=== PATIENT | female | born 1995 | race African-American/Black ===

== ENCOUNTER 2019-04-29 16:32 | Emergency (ER) | payer OTHER, SELFPAY ==
[2019-04-29] MEDS ORDERED: NA CHLORIDE 0.9% 1,000 ML ONE (16:36)
[2019-04-29] MEDS ORDERED: ONDANSETRON 4 MG/2 ML VIAL ONE (16:36)
--- OUTSIDE RECORDS SUMMARY | 2019-04-29 16:37 | XMS REPORT ---
:1995 [facility] Address [address] [place] [address] Dr. Leyva [address] [place] [id number] Care Team Providers Name Role Phone Unavailable Unavailable Unavailable Problems This patient has no known problems. Allergies, Adverse Reactions, Alerts This patient has no known allergies or adverse reactions. Medications This patient has no known medications.
[2019-04-29 17:06] LABS: Absolute Lymphocytes (CBC) 1.6 K/uL (0.7-4.9); Basophils % 1.1 % (0-1.3); Hematocrit 40.7 % (36.0-45.0); Lymphocytes % 42.7 % (15.3-44.8); MPV 8.2 fL (7.6-11.3); RBC Red Blood Cell Count 5.39 M/uL (3.86-4.86)
[2019-04-29] MEDS ORDERED: DIPHENHYDRAMINE 50 MG/ML VIAL ONE (17:08)
[2019-04-29 17:39] LABS: Blood Morphology Comment NOT SEEN (NOT SEEN); Platelet Estimate ADEQ; Target Cells FEW
[2019-04-29 17:50] LABS: BUN Blood Urea Nitrogen 11 mg/dL (7-18); Bicarbonate 22 mmol/L (21-32); CKMB Creatine Kinase MB < 1.0 ng/mL (0.3-3.6); Creatine Phosphokinase 70 U/L (26-192); Glucose Level 56 mg/dL (74-106); Magnesium 2.3 mg/dL (1.8-2.4); Potassium 3.5 mmol/L (3.5-5.1); Sodium Level 143 mmol/L (136-145); Troponin (Emerg Dept Use Only) < 0.02 ng/mL (0.0-0.045)
[2019-04-29 18:00] LABS: Urine Blood NEGATIVE (NEG); Urine Glucose NEGATIVE (NEG); Urine Protein NEGATIVE (NEG)
[2019-04-29 18:13] LABS: Urine Culture Reflex Order REFLEXED
[2019-04-29 18:14] LABS: Urine Bacteria 20-50 /HPF (<20); Urine Mucus SLIGHT /HPF (NONE SEEN); Urine RBC <5 /HPF (NONE SEEN)
--- NOTE | 2019-04-29 18:23 | ER ---
Nurse's Notes [facility] Name: Halle Zamudio Age: 23 yrs Sex: Female : 1995 Arrival Date: 04/29/2019 Time: 16:33 Bed 19 Private MD: Diagnosis: Dehydration;Hypoglycemia, unspecified Presentation: 04/29 16:33 Presenting complaint: EMS states: near syncopal episode while standing at work. Reports hb dizziness and nausea. Transition of care: patient was not received from another setting of care. Onset of symptoms was April 29, 2019. Risk Assessment: Do you want to hurt yourself or someone else? Patient reports no desire to harm self or others. Initial Sepsis Screen: Does the patient meet any 2 criteria? No. Patient's initial sepsis screen is negative. Does the patient have a suspected source of infection? No. Patient's initial sepsis screen is negative. Care prior to arrival: None. 16:33 Method Of Arrival: Ambulatory hb 16:33 Acuity: ROSEMARIE 3 hb Triage Assessment: 16:35 General: Appears in no apparent distress. Behavior is calm, cooperative. Pain: Denies hb pain. EENT: No signs and/or symptoms were reported regarding the EENT system. Neuro: Level of Consciousness is awake, alert, obeys commands, Oriented to person, place, time, situation. Cardiovascular: Capillary refill < 3 seconds Patient's skin is warm and dry. Cardiovascular: Heart tones S1 S2 present. Respiratory: Airway is patent Respiratory effort is even, unlabored, Respiratory pattern is regular, symmetrical, Breath sounds are clear bilaterally. GI: Reports nausea. : No signs and/or symptoms were reported regarding the genitourinary system. Derm: Skin is intact, is healthy with good turgor, Skin is clammy. Musculoskeletal: No signs and/or symptoms reported regarding the musculoskeletal system. Historical: - Allergies: 16:34 No Known Allergies; hb - Home Meds: 16:35 None [Active]; hb - PMHx: 16:35 None; hb - PSHx: 16:35 None; hb - Immunization history:: Adult Immunizations up to date. - Social history:: Smoking status: Patient/guardian denies using tobacco. - Ebola Screening: : No symptoms or risks identified at this time. Screenin:00 Abuse screen: Denies threats or abuse. Denies injuries from another. Nutritional hb screening: No deficits noted. Tuberculosis screening: No symptoms or risk factors identified. Fall Risk Total Claudio Fall Scale indicates Low Risk Score (25-44 pts). Fall prevention measures have been instituted. Side Rails Up X 2 Frequent Obs/Assesments occuring Family Present and informed to notify staff if they need to leave bedside As available Patient and Family Educated on Fall Prevention Program and strategies. Assessment: 16:44 General: see triage assessment. hb 17:30 Reassessment: Patient appears in no apparent distress at this time. Patient and/or hb family updated on plan of care and expected duration. Pain level reassessed. Patient is alert, oriented x 3, equal unlabored respirations, skin warm/dry/pink. 18:30 Reassessment: Discharge ordered, BGL 50s, pt provided sandwich, juice, and fruit cup. hb Discharge pending blood sugar recheck. 19:20 Reassessment: Patient appears in no apparent distress at this time. Patient and/or cc3 family updated on plan of care and expected duration. Pain level reassessed. Patient is alert, oriented x 3, equal unlabored respirations, skin warm/dry/pink. Received this female patient from morning shift [employer] as a case of near syncopal attack with IV cannula gauge 24 at the right hand with ongoing IVF of NS 1L bolus infusing well. Ordered for discharge home but to finish the remaining almost 400 mL of NS fluid bolus as endorsed for previous low blood pressure readings. Patient denies pain at this time. Patient states feeling better. General: Appears in no apparent distress. comfortable, Behavior is calm, cooperative, appropriate for age. Pain: Denies pain. Neuro: Level of Consciousness is awake, alert, obeys commands, Oriented to person, place, time, situation, Appropriate for age. Cardiovascular: Denies chest pain, Capillary refill < 3 seconds Patient's skin is warm and dry. Respiratory: Airway is patent Respiratory effort is even, unlabored, Respiratory pattern is regular, symmetrical. GI: Abdomen is flat. : No signs and/or symptoms were reported regarding the genitourinary system. EENT: No signs and/or symptoms were reported regarding the EENT system. Derm: Skin is intact, is healthy with good turgor, Skin is pink, warm \T\ dry. normal. Musculoskeletal: Circulation, motion, and sensation intact. Range of motion: intact in all extremities. 20:10 Reassessment: Patient appears in no apparent distress at this time. Patient and/or cc3 family updated on plan of care and expected duration. Pain level reassessed. Patient is alert, oriented x 3, equal unlabored respirations, skin warm/dry/pink. IV fluid bolus completed, blood pressure reading of 101/67 mmHg, informed [employer] DEVELOPER Jm and she said patient can be discharged home. IV cannula removed and patient left ER vitally stable and ambulatory with her relative. No valuables left in the patient's room. Patient denies pain at this time. Patient states feeling better. Patient states symptoms have improved. Vital Signs: 16:34 BP 110 / 63 Supine; Pulse 87; Resp 16; Temp 98; Pulse Ox 100% on R/A; Weight 56.7 kg; hb Height 5 ft. 4 in. (162.56 cm); Pain 0/10; 16:50 BP 96 / 53 Sitting; Pulse 60; hb 17:00 BP 90 / 61 Standing; Pulse 84; hb 17:57 BP 106 / 77; Pulse 67; Resp 15; Pulse Ox 99% on R/A; hb 18:50 BP 104 / 73; Pulse 66; Resp 14; Pulse Ox 99% on R/A; hb 19:30 BP 101 / 64; Pulse 73; Resp 16 S; Temp 98.1(O); Pulse Ox 100% on R/A; cc3 20:10 BP 101 / 67; Pulse 64; Resp 17 S; Pulse Ox 100% on R/A; cc3 16:34 Body Mass Index 21.46 (56.70 kg, 162.56 cm) hb ED Course: 16:33 Patient arrived in ED. hb 16:34 Triage completed. hb 16:34 Angela Oneal FNP-C is [facility]. kb 16:34 Arm band placed on. hb 16:35 Eulogio Mora MD is Attending Physician. kb 16:45 Missed attempt(s): 22 gauge in left antecubital area. Bleeding controlled, band aid dh3 applied, catheter tip intact. 16:50 Initial lab(s) drawn, by me, sent to lab. Missed attempt(s): 22 gauge in left hand. dh3 Bleeding controlled, band aid applied, catheter tip intact. 17:00 Siena Zuluaga, RN is Primary Nurse. hb 17:02 Missed attempt(s): 22 gauge in right antecubital area. Bleeding controlled, band aid hb applied, catheter tip intact. 17:05 Missed attempt(s): 22 gauge in right forearm. Bleeding controlled, band aid applied, hb catheter tip intact. 17:08 EKG done, by technology auditor. reviewed by Angela CELAYA. 3 17:12 Inserted saline lock: 24 gauge in right hand, using aseptic technique. Blood collected. hb 17:42 Urine collected: clean catch specimen, cloudy, nohelia colored. 3 17:57 Patient has correct armband on for positive identification. Bed in low position. Call hb light in reach. Side rails up X 1. 20:20 No provider procedures requiring assistance completed. IV discontinued, intact, cc3 bleeding controlled, No redness/swelling at site. Pressure dressing applied. Administered Medications: 17:00 Drug: Zofran 4 mg Route: IVP; Site: right antecubital; hb 17:35 Follow up: Response: No adverse reaction hb 17:01 Drug: NS 0.9% 1000 ml Route: IV; Rate: 1000 ml; Site: right hand; hb 18:00 Follow up: Response: No adverse reaction; IV Status: Completed infusion; IV Intake: hb 1000ml Intake: 18:00 IV: 1000ml; Total: 1000ml. hb Outcome: 18:22 Discharge ordered by . kb 20:20 Discharged to home ambulatory, with family. cc3 20:20 Condition: stable 20:20 Discharge instructions given to patient, family, Instructed on discharge instructions, follow up and referral plans. Demonstrated understanding of instructions, follow-up care. 20:29 Patient left the ED. cc3 Signatures: Angela Oneal FNP-C FNP-Ckb Baxter, Heather RN RN Savannah Mcmullen 3 Mariama Christie 3 Karely Burgos cc3 Corrections: (The following items were deleted from the chart) 16:35 16:34 BP 110 / 63; Pulse 87bpm; Resp 16bpm; Pulse Ox 100% RA; Temp 98F; 56.7 kg; Height hb 5 ft. 4 in.; BMI: 21.4; Pain 0/10; hb 17:57 16:44 BP 106 / 77; Pulse 67bpm; Resp 15bpm; Pulse Ox 99% RA; hb hb 20:47 20:20 Reassessment: Patient appears in no apparent distress at this time. Patient cc3 and/or family updated on plan of care and expected duration. Pain level reassessed. Patient is alert, oriented x 3, equal unlabored respirations, skin warm/dry/pink. cc3
--- NOTE | 2019-04-29 18:23 | EDPHYS ---
Physician Documentation [facility] Name: Halle Zamudio Age: 23 yrs Sex: Female : 1995 Arrival Date: 04/29/2019 Time: 16:33 Bed 19 Private MD: ED Physician Eulogio Mora HPI: 04/29 18:25 This 23 yrs old Black Female presents to ER via Ambulatory with complaints of Near kb Syncope. 18:25 The patient has experienced near-syncope, felt dizzy, felt faint. Onset: The kb symptoms/episode began/occurred just prior to arrival. Duration: This was a single episode. Context: occurred at work, occurred while the patient was standing, Just prior to the episode the patient experienced no apparent symptoms. Associated injury: The patient did not suffer any apparent associated injury. Associated signs and symptoms: Pertinent positives: dizziness. Current symptoms: Currently, the patient is not experiencing any symptoms, the patient feels back to baseline, no decreased level of consciousness, no confusion, no dysphasia, no headache, no paralysis, no visual changes. The patient has not experienced similar symptoms in the past. The patient has not recently seen a physician. 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 Reports she was outside a lot before work, went into work at 3 and has been inside since then. . Historical: - Allergies: 16:34 No Known Allergies; hb - Home Meds: 16:35 None [Active]; hb - PMHx: 16:35 None; hb - PSHx: 16:35 None; hb - Immunization history:: Adult Immunizations up to date. - Social history:: Smoking status: Patient/guardian denies using tobacco. - Ebola Screening: : No symptoms or risks identified at this time. ROS: 18:25 Constitutional: Negative for fever, chills, and weight loss, ENT: Negative for injury, kb pain, and discharge, Neck: Negative for injury, pain, and swelling, Cardiovascular: Negative for chest pain, palpitations, and edema, Respiratory: Negative for shortness of breath, cough, wheezing, and pleuritic chest pain, Abdomen/GI: Negative for abdominal pain, nausea, vomiting, diarrhea, and constipation, Back: Negative for injury and pain, : Negative for injury, bleeding, discharge, and swelling, MS/Extremity: Negative for injury and deformity, Skin: Negative for injury, rash, and discoloration. 18:25 Neuro: Positive for dizziness, near syncope. Exam: 18:25 Constitutional: This is a well developed, well nourished patient who is awake, alert, kb and in no acute distress. Head/Face: Normocephalic, atraumatic. ENT: Nares patent. No nasal discharge, no septal abnormalities noted. Tympanic membranes are normal and external auditory canals are clear. Oropharynx with no redness, swelling, or masses, exudates, or evidence of obstruction, uvula midline. Mucous membranes moist. Neck: Trachea midline, no thyromegaly or masses palpated, and no cervical lymphadenopathy. Supple, full range of motion without nuchal rigidity, or vertebral point tenderness. No Meningismus. Chest/axilla: Normal chest wall appearance and motion. Nontender with no deformity. No lesions are appreciated. Cardiovascular: Regular rate and rhythm with a normal S1 and S2. No gallops, murmurs, or rubs. Normal PMI, no JVD. No pulse deficits. Respiratory: Lungs have equal breath sounds bilaterally, clear to auscultation and percussion. No rales, rhonchi or wheezes noted. No increased work of breathing, no retractions or nasal flaring. Abdomen/GI: Soft, non-tender, with normal bowel sounds. No distension or tympany. No guarding or rebound. No evidence of tenderness throughout. Skin: Warm, dry with normal turgor. Normal color with no rashes, no lesions, and no evidence of cellulitis. MS/ Extremity: Pulses equal, no cyanosis. Neurovascular intact. Full, normal range of motion. Neuro: Awake and alert, GCS 15, oriented to person, place, time, and situation. Cranial nerves II-XII grossly intact. Motor strength 5/5 in all extremities. Sensory grossly intact. Cerebellar exam normal. Normal gait. Vital Signs: 16:34 BP 110 / 63 Supine; Pulse 87; Resp 16; Temp 98; Pulse Ox 100% on R/A; Weight 56.7 kg; hb Height 5 ft. 4 in. (162.56 cm); Pain 0/10; 16:50 BP 96 / 53 Sitting; Pulse 60; hb 17:00 BP 90 / 61 Standing; Pulse 84; hb 17:57 BP 106 / 77; Pulse 67; Resp 15; Pulse Ox 99% on R/A; hb 18:50 BP 104 / 73; Pulse 66; Resp 14; Pulse Ox 99% on R/A; hb 19:30 BP 101 / 64; Pulse 73; Resp 16 S; Temp 98.1(O); Pulse Ox 100% on R/A; cc3 20:10 BP 101 / 67; Pulse 64; Resp 17 S; Pulse Ox 100% on R/A; cc3 16:34 Body Mass Index 21.46 (56.70 kg, 162.56 cm) hb MDM: 16:35 Patient medically screened. ivan 18:20 Data reviewed: vital signs, nurses notes. Data interpreted: Pulse oximetry: on room air kb is 99 %. Interpretation: normal. Counseling: I had a detailed discussion with the patient and/or guardian regarding: the historical points, exam findings, and any diagnostic results supporting the discharge/admit diagnosis, lab results, the need for outpatient follow up, a family practitioner, to return to the emergency department if symptoms worsen or persist or if there are any questions or concerns that arise at home. 04/29 16:36 Order name: Troponin (emerg Dept Use Only) kb 04/29 16:36 Order name: Basic Metabolic Panel kb 04/29 16:36 Order name: CBC with Diff; Complete Time: 17:43 kb 04/29 16:36 Order name: Ckmb; Complete Time: 17:51 kb 04/29 16:36 Order name: CPK; Complete Time: 17:51 kb 04/29 16:36 Order name: Magnesium; Complete Time: 17:51 kb 04/29 16:36 Order name: Troponin (Emerg Dept Use Only); Complete Time: 17:51 EDMS 04/29 16:36 Order name: Basic Metabolic Panel; Complete Time: 17:51 EDMS 04/29 17:14 Order name: Manual Differential; Complete Time: 17:43 EDMS 04/29 17:41 Order name: Urine Microscopic Only; Complete Time: 18:14 dh3 04/29 17:41 Order name: Urine Dipstick--Ancillary (enter results); Complete Time: 18:02 bd 04/29 17:41 Order name: Urine --Ancillary (enter results); Complete Time: 18:02 bd 04/29 18:14 Order name: Urine Culture EDMS 04/29 19:16 Order name: Glucose, Ancillary Testing; Complete Time: 19:17 EDMS 04/29 16:36 Order name: EKG; Complete Time: 16:37 kb 04/29 16:36 Order name: EKG - Nurse/Tech; Complete Time: 16:58 kb 04/29 16:36 Order name: IV Saline Lock; Complete Time: 16:58 kb 04/29 16:36 Order name: Urine Dipstick-Ancillary (obtain specimen); Complete Time: 17:42 kb 04/29 16:36 Order name: Orthostatics; Complete Time: 17:01 kb 04/29 17:10 Order name: Labs - recollect needed; Complete Time: 17:42 ss Administered Medications: 17:00 Drug: Zofran 4 mg Route: IVP; Site: right antecubital; hb 17:35 Follow up: Response: No adverse reaction hb 17:01 Drug: NS 0.9% 1000 ml Route: IV; Rate: 1000 ml; Site: right hand; hb 18:00 Follow up: Response: No adverse reaction; IV Status: Completed infusion; IV Intake: hb 1000ml Disposition: 04/30 09:10 Co-signature as Attending Physician, Eulogio Mora MD I agree with the assessment and ivan plan of care. Disposition: 04/29/19 18:22 Discharged to Home. Impression: Dehydration, Hypoglycemia, unspecified. - Condition is Stable. - Discharge Instructions: Dehydration, Adult, Hypoglycemia, [id number]. - Medication Reconciliation Form, Thank You Letter, Antibiotic Education, Prescription Opioid Use, Work release form form. - Follow up: Emergency Department; When: As needed; Reason: Worsening of condition. Follow up: Private Physician; When: 2 - 3 days; Reason: Recheck today's complaints, Continuance of care, Re-evaluation by your physician. Signatures: Dispatcher [employer] EDAngela Ring, YOMI DURAN-Eulogio Ngo MD MD cha Smirch, Shelby, RN RN ss Baxter, Heather, RN RN Karely Soares cc3 Corrections: (The following items were deleted from the chart) 04/29 20:29 18:22 04/29/2019 18:22 Discharged to Home. Impression: Dehydration; Hypoglycemia, cc3 unspecified. Condition is Stable. Forms are Medication Reconciliation Form, Thank You Letter, Antibiotic Education, Prescription Opioid Use. Follow up: Emergency Department; When: As needed; Reason: Worsening of condition. Follow up: Private Physician; When: 2 - 3 days; Reason: Recheck today's complaints, Continuance of care, Re-evaluation by your physician. kb
--- NOTE | 2019-04-30 05:30 | EKG ---
Test Date: 2019-04-29 Test Time: 17:04:02 Road Oiler: DALLIN MEASUREMENT RESULTS: Intervals: Rate: 59 NH: 128 QRSD: 88 QT: 382 QTc: 378 [place]: P: 53 NH: 128 QRS: 76 T: 57 INTERPRETIVE STATEMENTS: Sinus bradycardia Otherwise normal ECG Compared to ECG 05/11/2014 11:00:43 No significant changes Electronically Signed On 04-30-19 05:29:53 CDT by Duong Moreno
== END 2019-04-29 20:29 | disposition home or self-care (01) ==
LOC: ER 16:32
DX: E86.0 Dehydration (principal); E16.2 Hypoglycemia, unspecified
CPT/HCPCS: 36415; 80048; 81003; 81015; 81025; 82550; 82553; 82962; 83735; 84484; 85025; 87086; 87088; 93005; 96361; 96374; 99284; J2405; J7030

== ENCOUNTER 2022-01-15 07:49 | Emergency (ER) | payer BC, SELFPAY ==
--- OUTSIDE RECORDS SUMMARY | 2022-01-15 07:53 | XMS REPORT | Continuity of Care Document ---
:1995 Author Organization [facility] t Address [address] [place] [address] Care Team Providers Name Role Phone JAMES MURPHY Attending Clinician Unavailable JAMES MURPHY Attending Clinician Unavailable Samson Attending Clinician Unavailable Samson Admitting Clinician Unavailable Payers Payer Name Policy Type Policy Number Effective Date Expiration Date Fran MCCAIN [id number] 2021 ADVANTAGE HMO 00:00:00 Problems This patient has no known problems. Allergies, Adverse Reactions, Alerts Allergy Allergy Status Severity Reaction(s) Onset Inactive Treating Comm ents Source Name Type Date Date Clinician NO KNOWN Drug Active [facility]ERGIE Class [facility] Social History Smoking Status Start Date Stop Date Source Never Smoker [facility] Medications Ordered Filled Start Stop Current Ordering Indication Dosage Frequency Signature Comments Components Source Medication Medication Date Date Medication? Clinician (SIG) Name Name ibuprofen ibuprofen No 1 Q8H ibuprofen [facility] 800 mg 800 mg 800 mg da tablet Take tablet Take tablet Medical 1 tablet 1 tablet Take 1 Group every 8 every 8 tablet hours by hours by every 8 oral route oral route hours by for 10 for 10 oral route days. days. for 10 days. Vital Signs Vital Name Observation Time Observation Value Comments Source BP Diastolic 2020-05-17 00:00:00 72 mm[Hg] [facility] Height 2020-05-17 00:00:00 63.25 [in_i] [facility] BMI (Body Mass 2020-05-17 00:00:00 24.4 kg/m2 [facility]) Group BP Systolic 2020-05-17 00:00:00 111 mm[Hg] [facility] Body Weight 2020-05-17 00:00:00 2220.8 [oz_av] [facility] Procedures Procedure Date / Time Performed Performing Clinician Sour e XR, finger(s), 2 or 2020-05-17 00:00:00 Marisa tarango [facility] more view Group Plan of Care Planned Activity Planned Date Details Comments Source Instructions [facility]rem[facility] Encounters Start End Encounter Admission Attending Care Care Encounter Source Date/Time Date/Time Type Type Clinicians Facility Department ID 2021-03-14 2021-03-14 Outpatient R NILDA MURPHY [facility] [id number] [facility] 13:40:00 13:40:00 NILDA MURPHY [id number] [facility] 2021-03-14 2021-03-14 Outpatient R NILDA MURPHY [facility] [id number] [facility] 13:40:00 13:40:00 NILDA MURPHY [facility] 2021-02-28 2021-02-28 Outpatient R [facility] [id number] [facility] 10:00:00 10:00:00 [facility] 2020-05-20 2020-05-20 [place] [id number] [facility] 09:14:00 09:14:00 [id number] 2020-05-19 2020-05-19 [place] [id number] [facility] 06:29:00 06:29:00 [facility] 2020-05-17 2020-05-17 [place] [id number] [facility] 01:58:00 01:58:00 [facility] 2020-05-17 2020-05-17 [facility] [place] - [id number] [facility] 00:00:00 00:00:00 Ezequiel [facility] RESIDENTIAL SALES CONSULTANT: [address], [place] [address] , Ph. Results This patient has no known results.
[2022-01-15] MEDS ORDERED: ONDANSETRON 4 MG/2 ML VIAL ONE (08:12)
[2022-01-15] MEDS ORDERED: MORPHINE 4 MG/ML SYR ONE (08:12)
[2022-01-15] MEDS ORDERED: NA CHLORIDE 0.9% 1,000 ML ONE (08:12)
[2022-01-15 08:16] LABS: Urine Blood Negative (Negative); Urine Glucose Negative (Negative); Urine Protein Negative (Negative); Urine Specific Gravity 1.025 (1.005-1.030)
[2022-01-15 08:29] LABS: Absolute Lymphocytes (CBC) 1.5 K/uL (0.7-4.9); Hematocrit 40.2 % (36.0-45.0); Lymphocytes % 23.6 % (15.3-44.8); MPV 7.7 fL (7.6-11.3); RBC Red Blood Cell Count 5.45 M/uL (3.86-4.86)
[2022-01-15 08:31] LABS: ALT/SGPT 35 U/L (12-78); AST/SGOT 20 U/L (15-37); Albumin 3.9 g/dL (3.4-5.0); Alkaline Phosphatase 70 U/L (45-117); BUN Blood Urea Nitrogen 14 mg/dL (7-18); Bicarbonate 25 mmol/L (21-32); Bilirubin Total 0.2 mg/dL (0.2-1.0); Glucose Level 93 mg/dL (74-106); Lipase 111 U/L (73-393); Potassium 3.8 mmol/L (3.5-5.1); Protein, Total 7.5 g/dL (6.4-8.2); Sodium Level 146 mmol/L (136-145)
[2022-01-15 08:37] LABS: Urine Bacteria 20-50 /HPF (<20); Urine Mucus LIGHT /HPF (NONE SEEN); Urine RBC <5 /HPF (NONE SEEN)
--- NOTE | 2022-01-15 09:45 | RAD REPORT ---
EXAM DESCRIPTION: CT - Abdomen Pelvis W Contrast - 01/15/2022 9:08 am CLINICAL HISTORY: Abdominal pain, acute, nonlocalized COMPARISON: No comparisons TECHNIQUE: Biphasic, helical CT imaging of the abdomen and pelvis was performed following 100 ml non -ionic IV contrast. No oral contrast administered. All CT scans are performed using dose optimization technique as appropriate and may include automated exposure control or mA/KV adjustment according to patient size. FINDINGS: No suspicious findings in the lung bases. The liver, spleen, and pancreas show no suspicious findings. Gallbladder and biliary tree are also wi thout suspicious finding. Symmetric renal function is seen with no hydronephrosis or suspicious renal mass. No pyelonephritis o r acute parenchymal process. No bladder abnormalities. No adrenal abnormalities. Uterus and ovaries s how no suspicious findings. No dilated bowel loops or bowel wall thickening. Retrocecal appendix is unremarkable. No free air, fr ee fluid or inflammatory stranding. No hernia, mass or bulky lymphadenopathy. No suspicious bony findings. IMPRESSION: Contrast enhanced CT abdomen and pelvis showing no significant or suspicious finding.
--- NOTE | 2022-01-15 09:57 | EDPHYS ---
Physician Documentation [facility] Name: Halle Zamudio Age: 26 yrs Sex: Female : 1995 Arrival Date: 01/15/2022 Time: 07:50 Bed 20 Private MD: ED Physician Jose Zhou HPI: 01/15 08:26 This 26 yrs old Black Female presents to ER via EMS with complaints of Abdominal rn Cramping. 08:27 The patient presents with abdominal pain that is diffuse. Onset: The symptoms/episode rn began/occurred 1 week(s) ago. The symptoms do not radiate. Associated signs and symptoms: Pertinent positives: nausea and vomiting, constipation, Pertinent negatives: diarrhea, dysuria, fever. The symptoms are described as crampy. Modifying factors: The symptoms are alleviated by nothing, the symptoms are aggravated by nothing. Severity of pain: At its worst the pain was moderate in the emergency department the pain is unchanged. The patient has not experienced similar symptoms in the past. The patient has not recently seen a physician. Reports 1 week of diffuse abd pain assoc with nausea/vomiting and constipation. No fever. No blood in stool . No trauma. Reports no way she is , does not have sex with men. Due for menstrual period soon. 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 - Social history:: Smoking status: unknown. - Family history:: not pertinent. - Hospitalizations: : No recent hospitalization is reported. ROS: 08:27 Constitutional: Negative for fever, chills, and weight loss, Eyes: Negative for injury, rn pain, redness, and discharge, Neck: Negative for injury, pain, and swelling, Cardiovascular: Negative for palpitations, and edema, Respiratory: Negative for shortness of breath, cough, wheezing, and pleuritic chest pain, Abdomen/GI: + abd pain and nausea/vomiting Back: Negative for injury and pain, : Negative for injury, bleeding, discharge, and swelling, MS/Extremity: Negative for injury and deformity, Skin: Negative for injury, rash, and discoloration, Neuro: Negative for headache, weakness, numbness, tingling, and seizure. Exam: 08:27 Constitutional: This is a well developed, well nourished patient who is awake, alert, rn and in no acute distress. Head/Face: Normocephalic, atraumatic. Eyes: Periorbital areas with no swelling, redness, or edema. Cardiovascular: Regular rate and rhythm. No pulse deficits. Respiratory: No increased work of breathing, no retractions or nasal flaring. Abdomen/GI: soft, + tender all 4 quadrants, no focal tenderness, no peritoneal signs Skin: Warm, dry MS/ Extremity: Pulses equal, no cyanosis. Neuro: Awake and alert, GCS 15 Vital Signs: 07:50 BP 113 / 54; Pulse 89; Resp 16; Temp 98; Pulse Ox 100% ; Weight 63.5 kg; Height 5 ft. 5 bp in. (165.10 cm); 09:00 BP 112 / 77; Pulse 83; Resp 16; Pulse Ox 100% ; bp 10:00 BP 108 / 76; Pulse 78; Resp 16; Pulse Ox 99% ; bp 07:50 Body Mass Index 23.30 (63.50 kg, 165.10 cm) bp MDM: 07:52 Patient medically screened. rn 09:55 Differential diagnosis: appendicitis, diverticulitis, Endometriosis, gastroesophageal rn reflux disease, non-specific abd pain. 09:56 Data reviewed: vital signs, nurses notes, lab test result(s), radiologic studies, CT rn scan, and as a result, I will discharge patient. Counseling: I had a detailed discussion with the patient and/or guardian regarding: the historical points, exam findings, and any diagnostic results supporting the discharge/admit diagnosis, lab results, radiology results, the need for outpatient follow up, to return to the emergency department if symptoms worsen or persist or if there are any questions or concerns that arise at home. Response to treatment: the patient's symptoms have markedly improved after treatment, and as a result, I will discharge patient. Special discussion: Based on the patient's Hx, exam, and Dx evaluation, there is no indication for emergent surgery or inpatient Tx. It is understood by the patient/guardian that if the Sx's persist or worsen they need to return immediately for re-evaluation. I discussed with the patient/guardian in detail that at this point there is no indication for admission to the hospital. It is understood, however, that if the symptoms persist or worsen the patient needs to return immediately for re-evaluation. ED course: No acute findings on CT abdomen, labs unremarkable, feels much better, normal vitals, will dc home with return precautions. UPT neg.. 01/15 08:03 Order name: CBC with Diff; Complete Time: 09:08 01/15 08:03 Order name: CMP; Complete Time: 09:08 01/15 08:03 Order name: Lipase; Complete Time: 09:08 rn 01/15 08:03 Order name: Urine Microscopic Only; Complete Time: 09:08 rn 01/15 08:17 Order name: Urine Dipstick-Ancillary; Complete Time: 09:08 [facility] 01/15 08:17 Order name: Urine --Ancillary (enter results) 01/15 08:03 Order name: CT Abd/Pelvis - IV Contrast Only; Complete Time: 09:46 01/15 08:03 Order name: IV Saline Lock; Complete Time: 08:09 01/15 08:03 Order name: Labs collected and sent; Complete Time: 08:09 01/15 08:03 Order name: Urine Dipstick-Ancillary (obtain specimen); Complete Time: 08:10 01/15 08:40 Order name: Urine Culture [facility] 01/15 08:03 Order name: Urine Test (obtain specimen); Complete Time: 08:10 01/15 09:55 Order name: PO challenge; Complete Time: 09:58 rn Administered Medications: 08:14 Drug: NS 0.9% 1000 ml Route: IV; Rate: 1 bolus; Site: right antecubital; bp 09:59 Follow up: IV Status: Completed infusion; IV Intake: 1000ml bp 08:14 Drug: Zofran (Ondansetron) 4 mg Route: IVP; Site: right antecubital; bp 09:58 Follow up: Response: No adverse reaction; Nausea is decreased bp 08:14 Drug: morphine 4 mg Route: IVP; Site: right antecubital; bp 09:58 Follow up: Response: Pain is decreased bp Disposition Summary: 01/15/22 09:57 Discharge Ordered Location: Home rn Problem: new rn Symptoms: have improved rn Condition: Stable rn Diagnosis - Abdominal pain, unspecified rn - Vomiting, unspecified rn Followup: rn - With: Private Physician - When: As needed - Reason: Recheck today's complaints, Re-evaluation by your physician Discharge Instructions: - Discharge Summary Sheet rn - Abdominal Pain, Adult rn - Nausea and Vomiting, Adult rn Forms: - Family Work Release iw - Work release form iw - Medication Reconciliation Form rn - Thank You Letter rn - Antibiotic yarn twister - Prescription Opioid Use rn Prescriptions: - ondansetron 4 mg Oral tablet,disintegrating - place 1 tablet by TRANSLINGUAL route every 8 hours As needed; 15 tablet; rn Refills: 0, Product Selection Permitted Signatures: Dispatcher [employer] EDMS Jose Zhou MD MD rn PeltierErrol RN RN bp Corrections: (The following items were deleted from the chart) 08:28 08:27 Constitutional: Negative for fever, chills, and weight loss, Eyes: Negative for rn injury, pain, redness, and discharge, Neck: Negative for injury, pain, and swelling, Cardiovascular: Negative for chest pain, palpitations, and edema, Respiratory: Negative for shortness of breath, cough, wheezing, and pleuritic chest pain, Abdomen/GI: + abd pain and nausea/vomiting Back: Negative for injury and pain, : Negative for injury, bleeding, discharge, and swelling, MS/Extremity: Negative for injury and deformity, Skin: Negative for injury, rash, and discoloration, Neuro: Negative for headache, weakness, numbness, tingling, and seizure, rn 08:29 08:27 Constitutional: This is a well developed, well nourished patient who is awake, rn alert, and in no acute distress. rn
--- NOTE | 2022-01-15 09:57 | ER ---
Nurse's Notes [facility] Name: Halle Zamudio Age: 26 yrs Sex: Female : 1995 Arrival Date: 01/15/2022 Time: 07:50 Bed 20 Private MD: Diagnosis: Abdominal pain, unspecified;Vomiting, unspecified Presentation: 01/15 07:50 Chief complaint: EMS states: DIFFUSE ABDOMINAL PAIN, N/V x1 WK. Coronavirus screen: At bp this time, the client does not indicate any symptoms associated with coronavirus-19. Ebola Screen: No symptoms or risks identified at this time. Initial Sepsis Screen: Does the patient meet any 2 criteria? No. Patient's initial sepsis screen is negative. Does the patient have a suspected source of infection? No. Patient's initial sepsis screen is negative. Risk Assessment: Do you want to hurt yourself or someone else? Patient reports no desire to harm self or others. Onset of symptoms is unknown. Care prior to arrival: Medication(s) given: Normal saline infusion, zofran 4 mg, IV initiated. 18 GA, in the right antecubital area. 07:50 Method Of Arrival: EMS: [facility] bp 07:50 Acuity: ROSEMARIE 3 bp Triage Assessment: 07:50 General: Appears distressed, uncomfortable, Behavior is cooperative, appropriate for bp age, anxious. Pain: Complains of pain in abdomen. EENT: No deficits noted. Neuro: No deficits noted. Cardiovascular: No deficits noted. Respiratory: No deficits noted. GI: Abdomen is non-distended, Reports nausea, vomiting. : No signs and/or symptoms were reported regarding the genitourinary system. Derm: No deficits noted. Musculoskeletal: No deficits noted. 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 - Social history:: Smoking status: unknown. - Family history:: not pertinent. - Hospitalizations: : No recent hospitalization is reported. Screenin:59 Abuse screen: Denies threats or abuse. Denies injuries from another. Nutritional bp screening: No deficits noted. Tuberculosis screening: No symptoms or risk factors identified. Fall Risk None identified. Assessment: 07:58 General: SEE TRIAGE NOTE. bp 09:14 Reassessment: PT RETURNED FROM CT. bp 09:59 Reassessment: PO CHALLENGE SUCCESSFUL. bp 10:09 Reassessment: PT D/C HOME VIA W/C WITH FAMILY, DX WITH NONSPECIFIC ABDOMINAL PAIN. bp Vital Signs: 07:50 BP 113 / 54; Pulse 89; Resp 16; Temp 98; Pulse Ox 100% ; Weight 63.5 kg; Height 5 ft. 5 bp in. (165.10 cm); 09:00 BP 112 / 77; Pulse 83; Resp 16; Pulse Ox 100% ; bp 10:00 BP 108 / 76; Pulse 78; Resp 16; Pulse Ox 99% ; bp 07:50 Body Mass Index 23.30 (63.50 kg, 165.10 cm) bp ED Course: 07:50 Patient arrived in ED. bp 07:50 Arm band placed on. bp 07:52 Jose Zhou MD is Attending Physician. rn 07:57 Triage completed. bp 07:59 Patient has correct armband on for positive identification. Bed in low position. Call bp light in reach. Side rails up X2. Adult w/ patient. 07:59 Maintain EMS IV. Dressing intact. Good blood return noted. Site clean \T\ dry. Gauge \T\ bp site: 18 G R AC. 08:00 Warm blanket given. panel monitor on. Pulse ox on. NIBP on. mh5 08:01 Initial lab(s) drawn, by me, held in ED. mh5 08:03 Errol Meyer, RN is Primary Nurse. bp 08:09 CMP Sent. mh5 08:10 CBC with Diff Sent. mh5 08:10 Lipase Sent. mh5 08:10 Urine Microscopic Only Sent. mh5 08:18 Urine collected: clean catch specimen, cloudy. mh5 09:10 CT Abd/Pelvis - IV Contrast Only In Process Unspecified. EDMS 10:00 No provider procedures requiring assistance completed. IV discontinued, intact, bp bleeding controlled, No redness/swelling at site. Pressure dressing applied. Administered Medications: 08:14 Drug: NS 0.9% 1000 ml Route: IV; Rate: 1 bolus; Site: right antecubital; bp 09:59 Follow up: IV Status: Completed infusion; IV Intake: 1000ml bp 08:14 Drug: Zofran (Ondansetron) 4 mg Route: IVP; Site: right antecubital; bp 09:58 Follow up: Response: No adverse reaction; Nausea is decreased bp 08:14 Drug: morphine 4 mg Route: IVP; Site: right antecubital; bp 09:58 Follow up: Response: Pain is decreased bp Intake: 09:59 IV: 1000ml; Total: 1000ml. bp Outcome: 09:57 Discharge ordered by . rn 10:00 Discharged to home via wheelchair, with family. bp 10:00 Condition: stable 10:00 Discharge instructions given to patient, family, Instructed on discharge instructions, follow up and referral plans. medication usage, Demonstrated understanding of instructions, follow-up care, medications, Prescriptions given X 1. 10:11 Patient left the ED. bp Signatures: Dispatcher [employer] Jose Banegas MD MD rn Martinez, Maria [facility] Errol Meyer RN RN bp
[2022-01-15 10:21] VITALS: TEMP 98
[2022-01-15 10:23] VITALS: BP 108/76; O2SAT 99
[2022-01-15 14:31] LABS: Urine Specific Gravity/Preg 1.025 (1.005-1.030)
== END 2022-01-15 10:11 | disposition home or self-care (01) ==
LOC: ER 07:49
DX: R10.9 Unspecified abdominal pain (principal); R11.10 Vomiting, unspecified
CPT/HCPCS: 96361; 87088; 85025; 87086; 36415; 81025; 83690; 80053; 74177; 96375; 96374; 99284; Q9967; J7030; J2405; 81003; 81015